=== PATIENT | female | born 1980 | race Native Hawaiian/Other Pacific Islander ===

== ENCOUNTER 2018-01-11 10:08 | Inpatient (IN) | payer OTHER ==
--- NOTE | 2018-01-11 11:06 | ED ---
General Adult HPI - General Chief complaint: Psychiatric Symptoms Stated complaint: Mental Health Time Seen by Provider: 01/11/18 10:20 Source: patient, RN notes reviewed Mode of arrival: ambulatory Limitations: no limitations - History of Present Illness Initial comments: 37-year-old female history of schizoaffective disorder presents for evaluation of auditory hallucinations. Patient is currently off her medication, she has been off for the past one month. She was restarted on her medications 2 months ago, took these for 1 month with some mild improvement in her symptoms. Patient states she hears the voices constantly, they are threatening, they tell her to hurt herself or that they will hurt her and that ultimately they will hurt her family. She herself denies any suicidal ideation. Patient's symptoms are very concerning to both herself and her family who is at bedside. She has had diagnosis of schizo disorder for some time, but she has not been hospitalized for these symptoms. - Related Data Home Medications Medication Instructions Recorded Confirmed Paliperidone [Invega] 6 mg PO DAILY 01/11/18 01/11/18 buPROPion HCL [Wellbutrin XL] 150 mg PO DAILY 01/11/18 01/11/18 Allergies Allergy/AdvReac Type Severity Reaction Status Date / Time No Known Allergies Allergy Verified 01/11/18 11:01 Review of Systems ROS Statement: Those systems with pertinent positive or pertinent negative responses have been documented in the HPI. ROS Other: All systems not noted in ROS Statement are negative. Past Medical History Past Medical History: Pneumonia History of Any Multi-Drug Resistant Organisms: None Reported Past Surgical History: No Surgical Hx Reported Past Psychological History: Schizoaffective Disorder Smoking Status: Current every day smoker Past Alcohol Use History: Occasional Past Drug Use History: Marijuana General Exam Limitations: no limitations General appearance: alert, in no apparent distress Head exam: Present: atraumatic, normocephalic Eye exam: Present: normal appearance, PERRL ENT exam: Present: normal exam Neck exam: Present: normal inspection. Absent: tenderness, meningismus Respiratory exam: Present: normal lung sounds bilaterally. Absent: respiratory distress, wheezes Cardiovascular Exam: Present: regular rate, normal rhythm GI/Abdominal exam: Present: soft. Absent: distended, tenderness Extremities exam: Present: normal inspection, normal capillary refill. Absent: pedal edema Neurological exam: Present: alert, oriented X3. Absent: motor sensory deficit Psychiatric exam: Present: flat affect, homicidal ideation (Suicidal and homicidal ideation with auditory hallucination), suicidal ideation Skin exam: Present: warm, dry, intact. Absent: cyanosis, diaphoretic Course Vital Signs 01/11/18 10:10 Temperature 98.1 F Pulse Rate 80 Respiratory 18 Rate Blood Pressure 136/76 O2 Sat by Pulse 98 Oximetry Medical Decision Making - Medical Decision Making Patient evaluated by EPS, she will be admitted for further psychiatric evaluation and treatment - Lab Data Lab Results 01/11/18 Range/Units 10:15 Urine Opiates Screen Not Detected (NotDetected) Ur Oxycodone Screen Not Detected (NotDetected) Urine Methadone Screen Not Detected (NotDetected) Ur Propoxyphene Screen Not Detected (NotDetected) Ur Barbiturates Screen Not Detected (NotDetected) U Tricyclic Antidepress Not Detected (NotDetected) Ur Phencyclidine Scrn Not Detected (NotDetected) Ur Amphetamines Screen Not Detected (NotDetected) U Methamphetamines Scrn Not Detected (NotDetected) U Benzodiazepines Scrn Detected H (NotDetected) Urine Cocaine Screen Not Detected (NotDetected) U Marijuana (THC) Screen Detected H (NotDetected) Disposition Clinical Impression: Psychosis Disposition: ADMITTED IP TO THIS [facility] Condition: Stable Referrals: Justin Brownlee DO [Primary Care Provider] - 1-2 days Decision to Admit Reason: Admit from EC Decision Date: 01/11/18 Decision Time: 13:42
[2018-01-11 11:34] LABS: Cocaine Screen,Urine Not Detected (NotDetected); Opiate Screen,Urine Not Detected (NotDetected); Phencyclidine Screen,Urine Not Detected (NotDetected); Urn Cannabinoid Scrn Detected (NotDetected)
[2018-01-11 11:35] LABS: Amphetamine Screen,Urine Not Detected (NotDetected); Barbiturate Screen,Urine Not Detected (NotDetected); Benzodiazepines Screen,Urine Detected (NotDetected); Methadone Screen, Urine Not Detected (NotDetected); Oxycodone Screen, Urine Not Detected (NotDetected); Tricyclic Antidepressant,Urine Not Detected (NotDetected)
[2018-01-11] MEDS: NICOTINE 21MG/24HR PATCH TRANSDERM SCH (14:19)
[2018-01-11] MEDS ORDERED: MAG HYDROX/AL HYDROX/SIMETH 30 ML CUP PO PRN (15:14)
[2018-01-11] MEDS ORDERED: MAGNESIUM HYDROXIDE 2,400 MG/10 ML CUP PO PRN (15:14)
[2018-01-11] MEDS ORDERED: ZIPRASIDONE 20 MG VIAL IM PRN (15:14)
--- NOTE | 2018-01-11 16:27 | P.HPMEDMHU ---
History of Present Illness H&P Date: 01/11/18 Chief Complaint: hearing voices Patient is a 37-year-old female with a past medical history of schizoaffective disorder depressive type, pneumonia, and tobacco abuse who presented to the ER due to hearing voices. She was subsequently admitted to the mental health unit. We are asked to see her in evaluation for possible medical etiologies. She states that she has a history of schizoaffective disorder depressive type and was being seen at [facility] here but due to insurance issues she stopped seeing them approximately a year ago. At that point in time she was on invega and wellbutrin. She was out of them for about a year but then saw a video psychiatrist who prescribed 4 week's worth of Invega and Wellbutrin , she ran out of those approximately 2 weeks ago. She reports that she lost her job about a month ago and since that point in time she has been hearing voices. She states that they're not voices but in fact some type of biotechnology that can control her and she can hear them. She states that they intermittently cause her pain is typically in her back or left shoulder but she is not having any now. She denies any chest pain, shortness of breath, nausea, vomiting, diarrhea, constipation, or dysuria. She is not having any weakness. She states that the voices could control all of that if they wanted. Review of Systems Pertinent positives and negatives as per HPI, remainder of 12 point review of systems is negative. Past Medical History Past Medical History: No Reported History, Pneumonia History of Any Multi-Drug Resistant Organisms: None Reported Past Surgical History: No Surgical Hx Reported Past Psychological History: Schizoaffective Disorder Additional Psychological History / Comment(s): Schizoaffective disorder she states depressive type Smoking Status: Current every day smoker Past Alcohol Use History: None Reported Past Drug Use History: Marijuana Additional History: Lives with her boyfriend, recently out of work, does not use any assistive devices - Past Family History Father Family Medical History: Diabetes Mellitus Mother Family Medical History: No Reported History Medications and Allergies Home Medications Medication Instructions Recorded Confirmed Type Paliperidone [Invega] 6 mg PO DAILY 01/11/18 01/11/18 History buPROPion HCL [Wellbutrin XL] 150 mg PO DAILY 01/11/18 01/11/18 History Allergies Allergy/AdvReac Type Severity Reaction Status Date / Time No Known Allergies Allergy Verified 01/11/18 11:01 Physical Exam Osteopathic Statement: *. No significant issues noted on an osteopathic structural exam other than those noted in the History and Physical/Consult. Vitals: Vital Signs Temp Pulse Resp BP Pulse Ox 01/11/18 13:43 97.8 F 67 16 121/58 97 01/11/18 10:10 98.1 F 80 18 136/76 98 Intake and Output 01/11/18 01/11/18 01/11/18 06:59 14:59 22:59 Other: Weight 99.79 kg Patient Weight 01/12/18 06:59 Weight 99.79 kg General: non toxic, no distress, appears at stated age, obese Derm: no unusual rashes/lesions no unusual ecchymoses, warm, dry Head: atraumatic, normocephalic, symmetric Eyes: EOMI, no lid lag, anicteric sclera, pupils equal round reactive to light ENT: Nose and ears atraumatic, no thrush, no pharyngeal erythema Neck: No thyromegaly, no cervical lymphadenopathy, trachea midline, supple Mouth: no lip lesion, mucus membranes moist Cardiovascular: S1S2 reg, no murmur, positive posterior tibial pulse bilateral, no edema, capillary refill less than 2 seconds Lungs: CTA bilateral, no rhonchi, no rales , no accessory muscle use Abdominal: soft, nontender to palpation, no guarding, no appreciable organomegaly, normal bowel sounds Ext: no gross muscle atrophy, muscle strength 5 out of 5 in all 4 extremities grossly, no contractures, Neuro: CN II-XI grossly intact, light touch intact all 4 extremities, finger to nose within normal limits, Psych: Alert, oriented, appropriate affect Cranial Nerve Examination - Cranial Nerves Cranial Nerve II- Optic: Intact Cranial Nerve III- Oculomotor: Intact Cranial Nerve IV- Trochlear: Intact Cranial Nerve V- Trigeminal: Intact Cranial Nerve - Abducens: Intact Cranial Nerve VII- Facial: Intact Cranial Nerve VIII- Auditory: Intact Cranial Nerve IX- Glossopharyngeal: Intact Cranial Nerve X- Vagus: Intact Cranial Nerve XI- Accessory: Intact Cranial Nerve XII- Hypoglossal: Intact Results Labs: Abnormal Lab Results - Last 24 Hours (Table) 01/11/18 Range/Units 10:15 U Benzodiazepines Scrn Detected H (NotDetected) U Marijuana (THC) Screen Detected H (NotDetected) Thrombosis Risk Factor Assmnt - DVT/VTE Prophylaxis DVT/VTE Prophylaxis: Low risk, early ambulation encouraged Assessment and Plan Assessment: Obesity -Check cholesterol level, hemoglobin A1c -Outpatient structured weight loss program of tobacco abuse -Cessation recommended -Nicotine replacement therapy Schizoaffective disorder with hallucinations -Your psych management History of multiple medications last year will check screening CBC, basic metabolic profile, TSH, cholesterol level, and hemoglobin A1c. If the family doctor as needed she follows with Dr. Brownlee in [place] Thank you for allowing us to participate in the care of this patient. We will follow peripherally. Do not hesitate to contact us with questions. Someone can be reached from the [facility] hospitalist group at all hours of the day at [phone].
[2018-01-12] MEDS: NICOTINE 21MG/24HR PATCH TRANSDERM SCH (09:44)
[2018-01-12 10:39] LABS: Basophils # (A) 0.1 k/uL (0-0.2); Basophils % (A) 1 %; Eosinophils # (A) 0.1 k/uL (0-0.7); Eosinophils % (A) 1 %; HCT 43.5 % (34.0-46.0); HGB 13.7 gm/dL (11.4-16.0); Lymphocytes # (A) 1.2 k/uL (1.0-4.8); Lymphocytes % (A) 9 %; MCH 29.7 pg (25.0-35.0); MCHC 31.6 g/dL (31.0-37.0); Mean Platelet Volume 8.2; Monocytes # (A) 0.5 k/uL (0-1.0); Monocytes % (A) 3 %; Neutrophils # (A) 12.1 k/uL (1.3-7.7); Neutrophils % (A) 86 %; Platelet Count 232 k/uL (150-450); RBC 4.63 m/uL (3.80-5.40); RDW 12.2 % (11.5-15.5)
[2018-01-12 11:31] LABS: ALT 22 U/L (9-52); AST 13 U/L (14-36); Albumin 4.3 g/dL (3.5-5.0); Alkaline Phosphatase 63 U/L (38-126); Anion Gap 14 mmol/L; Blood Urea Nitrogen 14 mg/dL (7-17); Calcium 9.5 mg/dL (8.4-10.2); Carbon Dioxide 23 mmol/L (22-30); Chloride 106 mmol/L (98-107); Cholesterol 189 mg/dL (<200); Glucose 126 mg/dL (74-99); HDL Cholesterol 42 mg/dL (40-60); LDL Cholesterol,Calculated 108 mg/dL (0-99); Sodium 143 mmol/L (137-145); Total Bilirubin 0.4 mg/dL (0.2-1.3); Total Protein 6.8 g/dL (6.3-8.2); Triglycerides 193 mg/dL (<150)
--- NOTE | 2018-01-12 16:05 | P.HP ---
Psychiatric H&P - . H&P Date: 01/12/18 History & Physical: Allergies Allergy/AdvReac Type Severity Reaction Status Date / Time No Known Allergies Allergy Verified 01/11/18 11:01 Vital Signs Temp 98.5 F 01/12/18 09:45 Pulse 97 01/12/18 09:45 Resp 20 01/12/18 09:45 BP 126/92 01/12/18 09:45 Pulse Ox 97 01/11/18 13:43 Intake & Output 01/11/18 01/12/18 01/12/18 18:59 06:59 18:59 Weight 99.79 kg Laboratory Last Values WBC 14.0 k/uL (3.8-10.6) H 01/12/18 10:10 RBC 4.63 m/uL (3.80-5.40) 01/12/18 10:10 Hgb 13.7 gm/dL (11.4-16.0) 01/12/18 10:10 Hct 43.5 % (34.0-46.0) 01/12/18 10:10 MCV 94.0 fL (80.0-100.0) 01/12/18 10:10 MCH 29.7 pg (25.0-35.0) 01/12/18 10:10 MCHC 31.6 g/dL (31.0-37.0) 01/12/18 10:10 RDW 12.2 % (11.5-15.5) 01/12/18 10:10 Plt Count 232 k/uL (150-450) 01/12/18 10:10 Neutrophils % 86 % 01/12/18 10:10 Lymphocytes % 9 % 01/12/18 10:10 Monocytes % 3 % 01/12/18 10:10 Eosinophils % 1 % 01/12/18 10:10 Basophils % 1 % 01/12/18 10:10 Neutrophils # 12.1 k/uL (1.3-7.7) H 01/12/18 10:10 Lymphocytes # 1.2 k/uL (1.0-4.8) 01/12/18 10:10 Monocytes # 0.5 k/uL (0-1.0) 01/12/18 10:10 Eosinophils # 0.1 k/uL (0-0.7) 01/12/18 10:10 Basophils # 0.1 k/uL (0-0.2) 01/12/18 10:10 Sodium 143 mmol/L (137-145) 01/12/18 10:10 Potassium 4.0 mmol/L (3.5-5.1) 01/12/18 10:10 Chloride 106 mmol/L (98-107) 01/12/18 10:10 Carbon Dioxide 23 mmol/L (22-30) 01/12/18 10:10 Anion Gap 14 mmol/L 01/12/18 10:10 BUN 14 mg/dL (7-17) 01/12/18 10:10 Creatinine 0.94 mg/dL (0.52-1.04) 01/12/18 10:10 Est GFR (MDRD) Af Amer >60 (>60 ml/min/1.73 sqM) 01/12/18 10:10 Est GFR (MDRD) Non-Af >60 (>60 ml/min/1.73 sqM) 01/12/18 10:10 Glucose 126 mg/dL (74-99) H 01/12/18 10:10 Calcium 9.5 mg/dL (8.4-10.2) 01/12/18 10:10 Total Bilirubin 0.4 mg/dL (0.2-1.3) 01/12/18 10:10 AST 13 U/L (14-36) L 01/12/18 10:10 ALT 22 U/L (9-52) 01/12/18 10:10 Alkaline Phosphatase 63 U/L (38-126) 01/12/18 10:10 Total Protein 6.8 g/dL (6.3-8.2) 01/12/18 10:10 Albumin 4.3 g/dL (3.5-5.0) 01/12/18 10:10 Triglycerides 193 mg/dL (<150) H 01/12/18 10:10 Cholesterol 189 mg/dL (<200) 01/12/18 10:10 LDL Cholesterol, Calc 108 mg/dL (0-99) H 01/12/18 10:10 HDL Cholesterol 42 mg/dL (40-60) 01/12/18 10:10 TSH 0.515 mIU/L (0.465-4.680) 01/12/18 10:10 Urine Opiates Screen Not Detected (NotDetected) 01/11/18 10:15 Ur Oxycodone Screen Not Detected (NotDetected) 01/11/18 10:15 Urine Methadone Screen Not Detected (NotDetected) 01/11/18 10:15 Ur Propoxyphene Screen Not Detected (NotDetected) 01/11/18 10:15 Ur Barbiturates Screen Not Detected (NotDetected) 01/11/18 10:15 U Tricyclic Antidepress Not Detected (NotDetected) 01/11/18 10:15 Ur Phencyclidine Scrn Not Detected (NotDetected) 01/11/18 10:15 Ur Amphetamines Screen Not Detected (NotDetected) 01/11/18 10:15 U Methamphetamines Scrn Not Detected (NotDetected) 01/11/18 10:15 U Benzodiazepines Scrn Detected (NotDetected) H 01/11/18 10:15 Urine Cocaine Screen Not Detected (NotDetected) 01/11/18 10:15 U Marijuana (THC) Screen Detected (NotDetected) H 01/11/18 10:15 01/12/18 15:47 Identification: Patient is a 37-year-old female who was brought to the emergency room because of weird behavior and had been off her medications. History of Present Illness: Patient is being seen for Dr. Mcbride. She patient states that her and mother brought her to the emergency room. She states that she was being seen by [facility] 2 years ago in [place] and saw them for 1 year but has not been on her medication since she stopped seeing them. She states she went to her primary care physician who referred her to [facility] where she was seen by a psychiatrist via of video. He prescribed in vague and Wellbutrin for her and this occurred in November 2017. Is unclear to me if the patient is taking the medication or not and she states that she did but it didn't work and so she stopped taking it. Patient states that in 2014 it was the first time she ever been seen by [facility] or treated for any psychiatric symptoms. She reports she was hearing voices at that time that she describes as an electronic quality and felt that she was being watched. She states she had suicidal thoughts at that time but the voices just stopped happening and then they would happen again. She states that she is hearing auditory hallucinations currently that her voices and she thinks that the NSA is using electronic weapons which she describes as psychotronic weapons. She states she is writing things down that they tell her and that the voices have been constant since November. She states the voices are conversations that tell her what to write down. She states that they also put her to sleep when they want. She states that she's had suicidal ideations and has made some plans but will not discuss them with me at this time and denies current suicidal ideation. Patient when discussing the NSA in the electronic weapons again to cain and at times her responses did not make any sense. Patient states that she is being watched but she doesn't think anyone is trying to hurt her. Patient denies any racing thoughts, increased energy, impulsive behavior. Patient states that she feels she is being watched now. Past Psychiatric History: Patient denies any past inpatient psychiatric admissions and states that she first received treatment in [address] [facility] in [place]. She states she was seen there for a year but is not been taking medications and was recently seen in [facility] via video by a psychiatrist and prescribed invega and Wellbutrin. She states she was on Abilify in the past but it made her gain weight and she is unaware of what other medications she has been on. She states she has been diagnosed with schizoaffective disorder, depressive type. Past Medical/Surgical History: Patient denies any surgical or medical history Family History: Patient states that a paternal cousin has been diagnosed with schizophrenia, reports no drug or alcohol history in the family Social History: Patient was born and raised in [place] to parents are both alive and has one brother and sister. Patient completed high school and then states she was a [id number] mom. She has been with her partner for 20 years and they have 2 children ages 19 and 16. He has an adult son from a prior relationship. She lives with her partner and the 16-year-old as well as a friend of the partners. 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 She denies any physical or sexual abuse. Substance Use History: Patient states she began using alcohol in the past and then quit for 10 years. She states that she is currently using alcohol and has for the last several months at a fifth a week. Patient states used marijuana at the age of 11 and is using currently. She states she also purchased Valium from the street which helped with the voices and she tried Adderall and Vicodin last week. Patient states that she has increased her use of tobacco and was smoking close to 3 packs of cigarettes a day. Legal History: Patient states that she was charged with malicious distraction of property when she was 16 Mental status: Appearance/Attitude: Patient is dressed in a hospital gown, makes intermittent eye contact and is cooperative Behavior: Patient did not display any psychomotor agitation or retardation was able to sit quietly during the interview Speech/Language: Patient's speech was spontaneous, normal volume and rhythm and she was coherent at times rambling about the voices, electronic weapons Thought Process: Patient was goal-directed in her responses to some questions but would become tangential. Patient did not exhibit flight of ideas or loose associations Thought Content: Patient states that she is hearing voices or having conversation and it is constant. She denies any visual hallucinations. She states that the NSA is involved as they are using electronic weapons as well as psychotronic weapons. She states they're telling her to write things down. She states the voices have been constant since November. She states that they put her to sleep when they want. Patient states that she's been eating well at home. Patient states that she feels she is being watched. Suicidal/Homicidal Ideation: Patient states that she currently has no suicidal ideation but she would not discuss her suicidal ideation or plans that she had before coming to the hospital and denies current homicidal ideation Sensorium/Cognition: Patient was alert and oriented to person, place, and time and her recent and remote memory were grossly intact Mood/Affect: Patient states she is depressed, and her affect was slightly blunted. Insight/Judgment: Patient's insight and judgment are impaired Intellectual Functioning: Patient's intellectual functioning appears average Strength/Weakness: Patient's has a stable housing, stable relationship/ noncompliance of medication Assessment: Patient was brought to the emergency room by her partner and mother due to not taking her medications as well as weird behavior. Patient has been using alcohol as well as her UDS was positive for benzos and marijuana which the patient states she has been using as well recently. Patient is reporting auditory hallucinations as well as feeling that she is being watched and reports that the NSA is involved using electronic and psychotronic weapons. She states she is being told to write things down and that she is being put to sleep when they want her to. Patient states that she responded well to invega and wellbutrin. Admission Diagnosis: schizoaffective disorder, depressive type; r/o bipolar disorder, alcohol use disorder, mild Plan: Patient was admitted and placed on routine precautions, group and activity therapy were ordered as well as routine laboratory studies and a medical consultation. Patient reports that she did well on an vague and so she was started on a day to 3 mg at bedtime, at this time I will not restart the Wellbutrin. I reviewed the use and side effects of the medication with the patient and discussed increasing the invega as needed. Patient requires hospitalization to stabilize her mood and target her psychotic symptoms.
[2018-01-12 19:05] LABS: Hemoglobin A1C 5.2 % (4.0-6.0)
[2018-01-12] MEDS ORDERED: PALIPERIDONE 3 MG TAB.ER.24 PO SCH (21:00)
[2018-01-13 06:50] VITALS: RESP 16
[2018-01-13] MEDS: NICOTINE 21MG/24HR PATCH TRANSDERM SCH (09:34)
--- NOTE | 2018-01-13 10:16 | P.PN ---
Progress Note - Text Interval history: The patient is found in group she follows me to an interview room. The psychiatric evaluation note was reviewed. She carries a diagnosis of schizoaffective disorder. She presents with acute symptoms of psychosis to the mental health unit and continues to have them today. She reports feeling persecuted by the [facility] and other government agencies. She states that they are using electronic weapons on her to psychologically torture her. She indicates she is having auditory hallucinations that will sometimes be commanding. She states that she feels she is "giving up" because she is talking about the voices and this will likely lead to her being injured. She states she's been on an invega in the past but did not feel it was effective. She indicates she was on Abilify and gained several pounds. It appears she's been on invega at least twice in the past. We will need collateral information. Mental status exam: The patient is an alert female appearing her stated age she has long hair she is dressed in hospital gown she is wearing red lipstick she has a disheveled appearance. She has spontaneous speech he is verbose she is directable in the session. She describes a distraught mood as she feels she is in danger. She describes a variety of paranoid and persecutory delusions as noted above. Insight and judgment are impaired however she is willing to comply with medication. She demonstrates no verbal or physical aggressiveness. She demonstrates no abnormal involuntary movements. Plan: Schizoaffective disorder, the patient will continue on invega we will increase the dose to 6 mg at bedtime. We will try to obtain records or getting input from collateral sources regarding the effectiveness of invega in the past. She may benefit from an injectable form of the medication. We discussed that topic and she entered no opinion today. Vital signs reviewed. We will monitor her for safety.
[2018-01-13] MEDS: LORazepam 1 MG TAB PO PRN ×2 (12:27→18:30)
[2018-01-13] MEDS: PALIPERIDONE 6 MG TAB.ER.24 PO SCH (21:23)
[2018-01-14] MEDS: NICOTINE 21MG/24HR PATCH TRANSDERM SCH (09:15)
[2018-01-14] MEDS: LORazepam 1 MG TAB PO PRN ×2 (09:15→17:19)
--- NOTE | 2018-01-14 09:57 | P.PN ---
Progress Note - Text Interval history: The patient is found in group she follows me to an interview room. She reports that she slept well last night however staff recorded approximate 5 hours. The patient states her appetite is stable and that she ate "too much". She continues to describe a variety of fears. She states that her auditory hallucinations are telling her that everyone is after her. She states that she wrote a letter to the [facility] and now they are angry with her. She states that these thoughts and hallucinations are constant. Mental status exam: The patient is alert she is dressed in hospital attire she has a disheveled appearance she seated calmly. She is very cooperative and easy to direct. She describes paranoid and persecutory delusions as noted above and describes auditory hallucinations that are sometimes commanding but not directing self-harm or harm to others. Insight and judgment are impaired. She demonstrates no verbal or physical aggressiveness she demonstrates no abnormal involuntary movements. Thought process can be linear at times she will become more tangential in describing her psychotic thoughts. Plan: We will continue the Invega 6 mg at bedtime. We will consider titrating dose further. We are awaiting records regarding past psychiatric treatment to see if the invega in fact was of benefit as an outpatient. We will monitor her for safety and encourage participation in the milieu.
[2018-01-14] MEDS: ACETAMINOPHEN TAB 325 MG TAB PO PRN (11:09)
[2018-01-14] MEDS: PALIPERIDONE 6 MG TAB.ER.24 PO SCH (21:18)
[2018-01-15] MEDS: LORazepam 1 MG TAB PO PRN ×2 (08:37→20:43)
[2018-01-15] MEDS: NICOTINE 21MG/24HR PATCH TRANSDERM SCH (08:37)
--- NOTE | 2018-01-15 15:39 | P.PN ---
Progress Note - Text Progress Note Date: 01/15/18 Interval history: The patient is seen in office ,has appropriate make up She reports that she slept well last night ,rates her anxiety 9/10 ,depression 9/10 ,10 being the worst,s She states that her auditory hallucinations are less intense than before She states that she is afraid that someone will hurt , patient stated that paranoia and AH are constant since age 17 and not related to her use for Vicodin or Adderall Mental status exam: The patient is well dressed and groomed She is very cooperative and easy to direct. She describes persecutory delusions as noted above and describes auditory hallucinations less intense with Invega than before ,denies any command AH,denies any SI or HI Insight and judgment are limited She demonstrates no verbal or physical aggressiveness she demonstrates no abnormal involuntary movements. Plan: We will continue current psychotropic medications . We will monitor her for safety and encourage participation in the milieu.Vitals are stable
[2018-01-15] MEDS: PALIPERIDONE 6 MG TAB.ER.24 PO SCH (20:43)
[2018-01-16] MEDS: LORazepam 1 MG TAB PO PRN ×2 (09:36→20:27)
--- NOTE | 2018-01-16 09:54 | P.PN ---
Progress Note - Text Progress Note Date: 01/16/18 Interval history: The patient was seen in hallway crying and talking to herself ,she did follow me to the office,she reports that A.hallucinations are loud and "THEY WANT TO TORTURING ME",endorses persecutory delusion ,irrational fear , crying episodes and feeling overwhelmed by intensity of A.hallucination , patient denies sleep or appetite issue ,denies any SI or HI.Patient stated that she was functioning better on Wellbutrin 300 mg and Invega 12 mg Mental status exam: The patient is dressed in hospital gown ,crying through session She is very cooperative and easy to direct. She describes persecutory delusions and AH ,denies any command AH,denies any SI or HI Insight and judgment are limited She demonstrates no verbal or physical aggressiveness she demonstrates no abnormal involuntary movements. Plan: We will increase Invega to 3mg AM and 6mg HS,monitor her thought process , does require hospitalization. We will monitor her for safety and encourage participation in the milieu.Vitals are stable
[2018-01-16] MEDS: PALIPERIDONE 3 MG TAB.ER.24 PO SCH (10:05)
[2018-01-16] MEDS: NICOTINE 21MG/24HR PATCH TRANSDERM SCH (10:06)
[2018-01-16] MEDS: PALIPERIDONE 6 MG TAB.ER.24 PO SCH (20:27)
[2018-01-17] MEDS: PALIPERIDONE 3 MG TAB.ER.24 PO SCH (09:04)
[2018-01-17] MEDS: NICOTINE 21MG/24HR PATCH TRANSDERM SCH (09:04)
[2018-01-17] MEDS: LORazepam 1 MG TAB PO PRN ×3 (09:04→23:10)
--- NOTE | 2018-01-17 11:35 | P.PN ---
Progress Note - Text Interval history: The patient is found in group she follows me to an interview room. She states her mood is mildly improved. She expresses some concern that she's not on her antidepressant and she reports she had some suicidal thoughts this morning. She continues to experience auditory hallucinations that can be derogatory at times and those will also precipitate suicidal thoughts. Staff report that she is participating in groups she is demonstrating no agitated behavior. I did receive a packet from [facility] [place]. It does indicate that the patient has done best on an invega and Wellbutrin XL. Social work was able to contact the patient's sister and she indicated the patient has done best with Wellbutrin and invega. Mental status exam: The patient is alert she seated calmly in the chair she is dressed in hospital attire. Hygiene is adequate she has a disheveled appearance. She indicates ongoing auditory hallucinations that can be derogatory. She indicates some recent suicidal thinking. Overall today she feels her mood is mildly better. She demonstrates no verbal or physical aggressiveness she demonstrates no abnormal involuntary movements. She does continue to have the same paranoid and persecutory thoughts as previously described. Insight and judgment limited. Plan: The patient will continue on the invega as written. I will initiate Wellbutrin XL 150 mg in the morning. We will consider titrating to 300 mg during the course of the hospitalization.
[2018-01-17] MEDS: PALIPERIDONE 6 MG TAB.ER.24 PO SCH (22:03)
[2018-01-18] MEDS: PALIPERIDONE 3 MG TAB.ER.24 PO SCH (09:05)
[2018-01-18] MEDS: buPROPion XL 150 MG TAB.ER.24H PO SCH (09:05)
[2018-01-18] MEDS: NICOTINE 21MG/24HR PATCH TRANSDERM SCH (09:05)
[2018-01-18] MEDS: LORazepam 1 MG TAB PO PRN ×2 (09:06→19:14)
--- NOTE | 2018-01-18 09:33 | P.PN ---
Progress Note - Text Interval history: The patient is found in her room she follows me to an interview room. She states her mood is better however she does continue to have some intermittent suicidal thoughts. Auditory hallucinations continue which include several different voices. She states they will provide some humorous content but also still are commanding. She states they will threatened her if she does not go along with their wishes. She reports that the voices tend to be a lot less when she is around other people intended be more acute when she is alone. She continues to state that she wants to be discharged as she feels it's ready for her to leave the hospital. We discussed the need for us to stabilize her symptoms further optimize her function once she is discharged. Mental status exam: The patient is alert she is dressed in her own clothing she has a disheveled appearance hygiene is adequate. She maintains a bland affect. She reports her mood is okay but also states she's having some intermittent suicidal ideation. She is reporting no homicidal ideation. She continues to have the same paranoid and persecutory thoughts. She states she wants to purchase a device that will block electronic and ultrasonic rays that might affect her. Insight and judgment limited. She demonstrates no abnormal involuntary movements she demonstrates no verbal or physical aggressiveness. Plan: The patient will continue on the invega 9 mg total. We have restarted the Wellbutrin XL which she has found helpful for depression in the past. Her symptoms of psychosis still appear to be exacerbated compared to what we assume her baseline function may be. She requires continued psychiatric hospitalization. We will monitor her for safety. She is encouraged to continue participating in group. Vital signs reviewed. I will reduce the frequency of the as needed Ativan.
[2018-01-18] MEDS ORDERED: MELATONIN 5 MG TABLET PO SCH (21:00)
[2018-01-18] MEDS: PALIPERIDONE 6 MG TAB.ER.24 PO SCH (21:14)
[2018-01-19] MEDS: NICOTINE 21MG/24HR PATCH TRANSDERM SCH (08:44)
[2018-01-19] MEDS: buPROPion XL 150 MG TAB.ER.24H PO SCH (08:45)
[2018-01-19] MEDS: PALIPERIDONE 3 MG TAB.ER.24 PO SCH (08:45)
--- NOTE | 2018-01-19 10:30 | P.PN ---
Progress Note - Text Interval history: The patient is found in the self lounge. She reports being involved in an argument with her last evening. She felt that he believed what she believed in terms of concerns of being monitored. She states that last night he confronted her telling her that that was her schizophrenia. She still resists the idea that she has this diagnosis. She expresses concern that she will have to take medication forever. We spent some time discussing what the medication does in terms of dopamine modulation. She states that her voices never go away and we discussed that we just want to see her improve her overall function and not be at an acute risk in terms of safety. Mental status exam: The patient is alert she is a disheveled appearance she is dressed in hospital attire. Upon entering the room she appears to be speaking to herself likely responding to auditory hallucinations. She endorses continued auditory hallucinations with continued thoughts that she is being listened to and could be in danger by electronic devices. She is reporting no suicidal ideation this morning no homicidal ideation intent or plan. She demonstrates no verbal or physical aggressiveness or any abnormal involuntary movements. Insight and judgment limited. Plan: The patient will continue on her current psychotropic medication. We will consider titrating Invega further. We will monitor her for safety and encourage her participation in the milieu. Vital signs reviewed. She is not appropriate for discharge at this point.
[2018-01-19] MEDS: PALIPERIDONE 6 MG TAB.ER.24 PO SCH (20:10)
[2018-01-19] MEDS: LORazepam 1 MG TAB PO PRN (21:02)
[2018-01-20] MEDS: PALIPERIDONE 3 MG TAB.ER.24 PO SCH (08:38)
[2018-01-20] MEDS: buPROPion XL 150 MG TAB.ER.24H PO SCH (08:38)
[2018-01-20] MEDS: NICOTINE 21MG/24HR PATCH TRANSDERM SCH (08:38)
[2018-01-20] MEDS: LORazepam 1 MG TAB PO PRN ×2 (08:38→20:46)
--- NOTE | 2018-01-20 09:10 | P.PN ---
Progress Note - Text Interval history: The patient is found in the self lounge. She states that she is feeling "stir crazy" and would like to be discharged. She states it's been over a month since she has worked and she wants to return to work by finding a new job. She has been compliant with medication she has been attending groups. She states that she sleeping throughout the night staff reported she slept 6 hours. She continues to experience auditory hallucinations. She states they' re noncommanding today. She states she is wasting time in here when she needs to return home and think of ways to stop others from reading her mind. Mental status exam: The patient is alert she is cooperative and easily directed in the session. She seated calmly in the chair. Upon approach to the self lounge she was observed talking to herself quietly. She discontinues that activity when I enter the room area she endorses ongoing auditory hallucinations. She endorses ongoing paranoid and persecutory thoughts. She is future oriented in stating she wants to return to work. She demonstrates no verbal or physical aggressiveness or any abnormal involuntary movements. Insight and judgment limited. Affect is constricted. Plan: The patient will continue on her current psychotropic medication. We will investigate whether or not she will be able to afford Invega Sustenna through [place] [facility]. We will look for input from social work from her . We will monitor her for safety and encourage her participation in the milieu. Vital signs reviewed. Again we are trying to reduce her symptoms of psychosis so that she is closer to baseline function. Again it does appear that she has psychosis at baseline.
[2018-01-20] MEDS: ACETAMINOPHEN TAB 325 MG TAB PO PRN (17:00)
[2018-01-20] MEDS: PALIPERIDONE 6 MG TAB.ER.24 PO SCH (20:47)
[2018-01-21] MEDS: PALIPERIDONE 3 MG TAB.ER.24 PO SCH (08:49)
[2018-01-21] MEDS: buPROPion XL 150 MG TAB.ER.24H PO SCH (08:49)
[2018-01-21] MEDS: NICOTINE 21MG/24HR PATCH TRANSDERM SCH (08:50)
[2018-01-21] MEDS: LORazepam 1 MG TAB PO PRN ×2 (08:50→20:21)
--- NOTE | 2018-01-21 10:22 | P.PN ---
Progress Note - Text Interval history: The patient is found in group she follows me to an interview room. She states that she is doing well and is looking forward to discharge. Social work notes were reviewed. We are still trying to verify if her outpatient community mental health provider will be able to cover the Invega Sabinoenna. If so he would like to initiate that soon and the patient is agreeable. She also indicates that her would be happy that she is on an injectable medication as well. She does indicate that she will return home to reside with her . Mental status exam: The patient is alert she is dressed in hospital attire she is wearing makeup hygiene grooming are improved. Eye contact is appropriate speech is fluent spontaneous nonpressured. She does demonstrate a more normal range of affect today. She was not observed responding to internal stimuli this morning. She does continue to endorse auditory hallucinations that are noncommanding. She continues to endorse paranoid and persecutory thoughts and states "I think I will always be paranoid". Insight and judgment improving. She demonstrates no verbal or physical aggressiveness she demonstrates no abnormal involuntary movements. Plan: The patient will continue on her current medication. Once we learn that she has access to invega sabinoenna as an outpatient we will initiate that medication here on the mental health unit. It appears that she is beginning to stabilize. We will consider discharging her Wednesday if she demonstrates further improvement and appears stable. We will continue to monitor her for safety and encourage her participation in the milieu. Social work will continue working on discharge planning.
[2018-01-21] MEDS: PALIPERIDONE 6 MG TAB.ER.24 PO SCH (20:21)
[2018-01-22] MEDS: buPROPion XL 150 MG TAB.ER.24H PO SCH (08:26)
[2018-01-22] MEDS: NICOTINE 21MG/24HR PATCH TRANSDERM SCH (08:26)
[2018-01-22] MEDS: LORazepam 1 MG TAB PO PRN ×2 (08:26→20:40)
[2018-01-22] MEDS: PALIPERIDONE 3 MG TAB.ER.24 PO SCH (08:26)
--- NOTE | 2018-01-22 14:23 | P.PN ---
Progress Note - Text Progress Note Date: 01/22/18 Interval History: Patient is a 37-year-old female who [place] [facility] [place]. Patient reports that she continues to have auditory hallucinations which she is trying to ignore but remained somewhat constant. She states that she remains paranoid still feeling that she does not have schizophrenia but is being tested with technology. Patient states she still is depressed and hopeless that she won't be able to figure out what is wrong with her. She slept for 8 hours last evening. She reports no suicidal thoughts. Patient reports no side effects from the medication. Mental Status: Appearance/Attitude: Patient is appropriately dressed, makes good eye contact and is cooperative. Behavior: Patient does not display any psychomotor agitation or retardation. Speech/Language: He speech is spontaneous and of normal volume and rhythm and she is coherent Thought Process: Patient is goal-directed, no evidence of loose associations or flight of ideas Thought Content: Patient reports that she continues to hear voices which are constant but she is trying to ignore them she denies visual hallucinations. Patient states that she still thinks technology is being tested on her and that she doesn't have schizophrenia. She reports feeling hopeless that she won't be able to figure out what is wrong with her. Patient slept for 8 hours last evening and is eating well Suicidal/Homicidal Ideation: Patient denies any current suicidal or homicidal ideation Sensorium/Cognition: Patient is alert and oriented to person, place, and time and her recent and remote memory are grossly intact. Mood/Affect: Patient's mood is more stable, she reports still feeling slightly depressed and her affect is slightly blunted Insight/Judgment: Patient's insight and judgment are fair. Assessment: Patient states that she continues to hear the voices but is trying to ignore them, continues to report feeling that she does not have schizophrenia but that technology is being tested on her. She reports no racing thoughts and is sleeping for 8 hours at night. She remains slightly depressed and hopeless secondary to not being able to figure out what is really wrong with her. Patient has been compliant with her medication and does feel that it has been of some benefit. Patient has been attending groups and activities. Plan: Patient continues on Invega 3 mg in the morning and 6 mg at bedtime and Wellbutrin 150 mg sustained-release in the morning to target her mood and psychotic symptoms. Patient continues to require hospitalization to further stabilize her in the long acting injectable Invega is being considered.
[2018-01-22] MEDS: ACETAMINOPHEN TAB 325 MG TAB PO PRN (15:00)
[2018-01-22] MEDS: PALIPERIDONE 6 MG TAB.ER.24 PO SCH (20:39)
[2018-01-23] MEDS: PALIPERIDONE 3 MG TAB.ER.24 PO SCH (08:34)
[2018-01-23] MEDS: NICOTINE 21MG/24HR PATCH TRANSDERM SCH (08:34)
[2018-01-23] MEDS: buPROPion XL 150 MG TAB.ER.24H PO SCH (08:35)
[2018-01-23] MEDS: LORazepam 1 MG TAB PO PRN ×2 (08:36→20:40)
--- NOTE | 2018-01-23 13:30 | P.PN ---
Progress Note - Text Progress Note Date: 01/23/18 Interval History: Patient is a 37-year-old female who is being seen for weekend coverage. Patient states that she slept well last night and is excited to be going home. She continues to verbalize that she doesn't feel that she needs the medication but states that she will continue to take it when she is discharged. She still feels that this is been caused by some kind of technology. She reports that at times she still has paranoid thoughts that people are watching her. She denied any suicidal ideation. She denied any side effects from the medicine other than feeling slightly sedated during the day. Mental Status: Appearance/Attitude: Patient is appropriately dressed, makes good eye contact and is cooperative Behavior: Patient does not display any psychomotor agitation or retardation. Speech/Language: Speech is spontaneous, normal volume and rhythm and she is coherent. Thought Process: Patient is goal-directed there is no evidence of loose associations or flight of ideas Thought Content: Patient denies auditory or visual hallucinations states that at times she still thinks people are watching her continues to have thoughts that technology is caused her difficulties and it is not due to schizophrenia she states that she does not feel that she needs the medications but will continue to take them post discharge. She reports that she is sleeping well and her appetite is good Suicidal/Homicidal Ideation: Patient denied any current suicidal or homicidal ideation. Sensorium/Cognition: Patient is alert and oriented to person, place, and time and her recent and remote memory are grossly intact. Mood/Affect: Patient's mood is pleasant and her affect is slightly blunted Insight/Judgment: Patient's insight and judgment are fair Assessment: Patient reports that she is not having side effects from the medication is sleeping and eating well and anxious and excited to go home. She does not feel that she needs to take the medication but states that she will continue to do so when she is discharged. She continues to think that her difficulties have been caused by technology. She states that occasionally she still has paranoid thoughts that people are watching her. Plan: Patient continues on Invega 3 mg in the morning and 6 mg at bedtime as well as Wellbutrin 150 mg in the morning and is planning to have long-acting Invega injection tomorrow. Patient states that the plan is for her to be discharged tomorrow.
[2018-01-23] MEDS: PALIPERIDONE 6 MG TAB.ER.24 PO SCH (20:39)
[2018-01-24 07:07] VITALS: BP 134/71; PULSE 96; TEMP 97.7
[2018-01-24] MEDS: PALIPERIDONE 3 MG TAB.ER.24 PO SCH (08:35)
[2018-01-24] MEDS: NICOTINE 21MG/24HR PATCH TRANSDERM SCH (08:35)
[2018-01-24] MEDS: buPROPion XL 150 MG TAB.ER.24H PO SCH (08:35)
[2018-01-24] MEDS ORDERED: PALIPERIDONE IM 234 MG/1.5 ML SYG IM ONE (10:00)
--- NOTE | 2018-01-24 10:01 | P.DS ---
Providers Date of admission: 01/11/18 13:47 Expected date of discharge: 01/24/18 Attending physician: Tunde Mcbride Consults: 01/11/18 15:14 Consult Physician Routine Consulting Provider: Stephanie Vazquez Consult Reason/Comments: H&P Do you want consulting provider notified?: Yes Primary care physician: Justin Brownlee - Discharge Diagnosis(es) (1) Schizoaffective disorder Current Visit: Yes Status: Acute (2) Alcohol use disorder Current Visit: Yes Status: Acute Priority: Medium Hospital Course: Brief summary of admission note: This patient is a 37-year-old female who was admitted to the mental health unit through the emergency room due to an exacerbation of her psychosis. She was brought to the hospital by family members due to her psychotic symptoms. It appeared that she had been off of her antipsychotic medication. She reported ongoing auditory hallucinations and paranoid thinking. She described thinking that the [employer] is using electronic weapons against her. For full details please refer to the psychiatric evaluation note dictated 01/12/2018. Summary of hospital course: The patient was admitted to the mental health unit. Her presenting symptoms and medication options were reviewed. She was restarted on an invega. We titrated the dose of that medication while here. We did get records from [facility] and indicated that she had done best with invega and Wellbutrin XL in the past. Social work did reach a family member and she had indicated the patient did well with these medications. It appeared evident that the patient has baseline psychosis but the symptoms were exacerbated at presentation. The patient was able to tolerate the Invega we discussed using the injectable form of the medication and she was agreeable as she finds it bothers him to take pills. She demonstrates future oriented thinking in that she wants to regain employment as she feels more productive when she works. She plans on returning home with her upon discharge. She is agreeable to follow-up with [facility]. She was seen by the court operations clerk for routine history and physical exam. Social work has met with the patient numerous times during the hospitalization. Mental status exam: The patient is an overweight female appearing her stated age. She is dressed in her own clothing. Hygiene and grooming are adequate. Eye contact is appropriate. Speech is fluent spontaneous nonpressured. She reports having no suicidal or homicidal ideation intent or plan. She has ongoing auditory hallucinations but she states she is not experiencing any command auditory hallucinations. She is endorsing no visual hallucinations. She continues to have some paranoid thoughts that she is being watched or monitored but she feels that these are at their baseline and she feels she would be able to continue participating in her ADLs and even resume working. Insight and judgment have improved. She is demonstrating no verbal or physical aggressiveness she is demonstrating no abnormal involuntary movements. She remains oriented to person place and date. Impressions 1. Schizoaffective disorder, alcohol use disorder Plan: The patient will be discharged mental health unit today to return home residing with her . She will continue on invega totaling 9 mg daily for 1 week then she may discontinue the medication. She will receive the Invega Sustenna injection 234 mg today. She will be due for her next Invega Sustenna injection of 156 mg in one week. She is instructed not to use any alcohol or illicit drugs as these will elevate her safety risk and likely exacerbate her psychotic symptoms. She does not wish to participate in any inpatient chemical dependency treatment for her alcohol use. She plans on addressing this further with outpatient mental health treatment. Social work will arrange outpatient mental health follow-up with [facility]. Patient Condition at Discharge: Stable Plan - Discharge Summary Discharge Rx Participant: No New Discharge Prescriptions: New buPROPion XL [Wellbutrin XL] 150 mg PO DAILY #30 tab.er.24h Nicotine 21Mg/24Hr Patch [Habitrol] 1 patch TRANSDERM DAILY #12 patch Paliperidone [Invega] 3 mg PO DAILY #7 tab.er.24 Paliperidone [Invega] 6 mg PO HS #7 tab.er.24 Paliperidone IM [Invega Sustenna] 156 mg IM ONCE #1 syr Discontinued buPROPion HCL [Wellbutrin XL] 150 mg PO DAILY Paliperidone [Invega] 6 mg PO DAILY Discharge Medication List Nicotine 21Mg/24Hr Patch [Habitrol] 1 patch TRANSDERM DAILY #12 patch 01/24/18 [ Rx] Paliperidone IM [Invega Sustenna] 156 mg IM ONCE #1 syr 01/24/18 [Rx] Paliperidone [Invega] 3 mg PO DAILY #7 tab.er.24 01/24/18 [Rx] Paliperidone [Invega] 6 mg PO HS #7 tab.er.24 01/24/18 [Rx] buPROPion XL [Wellbutrin XL] 150 mg PO DAILY #30 tab.er.24h 01/24/18 [Rx] Follow up Appointment(s)/Referral(s): Justin Brownlee DO [Primary Care Provider] - 1-2 days
== END 2018-01-24 12:29 | disposition home or self-care (01) | DRG 885 ==
LOC: EC 10:08 → 3MHU 13:47
PROVIDERS: ADMIT Psychiatry & Neurology Psychiatry; ATTEND Psychiatry & Neurology Psychiatry
DX: F25.1 Schizoaffective disorder, depressive type (principal); R45.851 Suicidal ideations; Z91.14 Patient's other noncompliance with medication regimen; F10.10 Alcohol abuse, uncomplicated; E66.9 Obesity, unspecified; F17.210 Nicotine dependence, cigarettes, uncomplicated; Z68.36 Body mass index [BMI] 36.0-36.9, adult; Z71.6 Tobacco abuse counseling
CPT/HCPCS: 80053; 80061; 80306; 82075; 83036; 84443; 85025; 99285

== ENCOUNTER 2023-03-17 17:04 | Inpatient (IN) | payer MEDICAID, OTHER ==
[2023-03-17 17:28] LABS: Appearance,Urine Cloudy (Clear); Bilirubin,Urine Negative (Negative); Blood,Urine Negative (Negative); Color,Urine Light Yellow; Glucose,Urine (UA) Negative (Negative); Ketones,Urine Negative (Negative); Leukocyte Esterase,Urine Negative (Negative); Nitrite,Urine Negative (Negative); Protein,Urine Negative (Negative); RBC,Urine <1 /hpf (0-5); Specific Gravity,Urine 1.004 (1.001-1.035); Squamous Epithelial Cell,Urine 12 /hpf (0-4); Urobilinogen,Urine <2.0 mg/dL (<2.0); WBC,Urine <1 /hpf (0-5)
[2023-03-17 17:44] LABS: Amphetamine Screen,Urine Not Detected (NotDetected); Barbiturate Screen,Urine Not Detected (NotDetected); Benzodiazepines Screen,Urine Not Detected (NotDetected); Cocaine Screen,Urine Not Detected (NotDetected); Methadone Screen, Urine Not Detected (NotDetected); Opiate Screen,Urine Not Detected (NotDetected); Oxycodone Screen, Urine Not Detected (NotDetected); Phencyclidine Screen,Urine Not Detected (NotDetected); Tricyclic Antidepressant,Urine Not Detected (NotDetected); Urn Cannabinoid Scrn Not Detected (NotDetected)
[2023-03-17 18:21] LABS: Basophils % (A) 0 %; Eosinophils # (A) 0.1 k/uL (0-0.7); Eosinophils % (A) 2 %; HCT 41.6 % (34.0-46.0); HGB 14.6 gm/dL (11.4-16.0); Lymphocytes % (A) 28 %; MCH 31.4 pg (25.0-35.0); MCV 89.8 fL (80.0-100.0); Mean Platelet Volume 10.1; Monocytes # (A) 0.3 k/uL (0-1.0); Monocytes % (A) 4 %; Neutrophils # (A) 4.6 k/uL (1.3-7.7); Neutrophils % (A) 64 %; Platelet Count 153 k/uL (150-450); RBC 4.63 m/uL (3.80-5.40); RDW 12.8 % (11.5-15.5); WBC 7.2 k/uL (3.8-10.6)
[2023-03-17 18:31] LABS: African American GFR (CKD) >90 (>60 ml/min/1.73 sqM); Albumin 4.3 g/dL (3.5-5.0); Glucose 112 mg/dL (74-99); Non-African American GFR(CKD) >90 (>60 ml/min/1.73 sqM); Potassium 3.5 mmol/L (3.5-5.1); Sodium 146 mmol/L (137-145); Total Bilirubin 0.2 mg/dL (0.2-1.3)
[2023-03-17 18:41] LABS: ALT 47 U/L (4-34); AST 38 U/L (14-36); Alkaline Phosphatase 69 U/L (38-126); Anion Gap 14 mmol/L; Blood Urea Nitrogen 13 mg/dL (7-17); Carbon Dioxide 25 mmol/L (22-30); Chloride 107 mmol/L (98-107); Total Protein 7.1 g/dL (6.3-8.2)
[2023-03-17 18:52] LABS: Alcohol 362 mg/dL
[2023-03-17] MEDS ORDERED: LORazepam 2 MG/ML INJ IV PRN ×2 (20:20)
[2023-03-17] MEDS ORDERED: THIAMINE 100 MG/ML 2 ML VIAL IM STA (20:20)
[2023-03-17] MEDS ORDERED: SODIUM CHLORIDE 0.9% 1,000 ML IV STA (20:21)
[2023-03-17] MEDS ORDERED: NALOXONE 0.4 MG/ML 1 ML VIAL IV PRN (20:24)
[2023-03-17] MEDS ORDERED: IBUPROFEN 400 MG TAB PO PRN (20:24)
--- NOTE | 2023-03-17 20:24 | ED ---
General Adult HPI - General Chief complaint: Alcohol Stated complaint: ETOH Time Seen by Provider: 03/17/23 17:46 Source: patient, family, RN notes reviewed, old records reviewed Mode of arrival: wheelchair Limitations: no limitations - History of Present Illness Initial comments: She is a 42-year-old female who presents with a department with alcohol i ntoxication and concern for alcohol withdrawals. Also has a history of psychiatric illness. Family brought her in. Attempted to go to rehab facility with instructed her to come here for his. Does have a history of withdrawals as well as hallucinations with them. States she was somewhat withdrawing over the weekend but began drinking alcohol again. Denies any other drug use. Denies any acute complaints at this time other than alcohol intoxication. Presents for further evaluation at this time. Denies any current hallucinations or tremors. - Related Data Home Medications Medication Instructions Recorded Confirmed No Known Home Medications 03/17/23 03/17/23 Allergies Allergy/AdvReac Type Severity Reaction Status Date / Time latex AdvReac Rash/Hives Verified 03/17/23 19:16 Review of Systems ROS Statement: Those systems with pertinent positive or pertinent negative responses have been documented in the HPI. Review of Systems: CONST: Denies fever EYES: Denies blurry vision ENT: Denies nasal congestion C/V: Denies Chest pain RESP: Denies shortness of breath GI: Denies abdominal pain : Denies dysuria SKIN: Denies rash. MSK: Denies joint pain. NEURO: Denies headache ROS Other: All systems not noted in ROS Statement are negative. Past Medical History Past Medical History: Pneumonia History of Any Multi-Drug Resistant Organisms: None Reported Past Surgical History: No Surgical Hx Reported Past Anesthesia/Blood Transfusion Reactions: No Reported Reaction Past Psychological History: Schizoaffective Disorder Smoking Status: Current every day smoker Past Alcohol Use History: Abuse, Daily, Heavy Past Drug Use History: Marijuana - Past Family History Father Family Medical History: Diabetes Mellitus Mother Family Medical History: No Reported History General Exam - General Exam Comments Initial Comments: General: Appears in no acute distress. Appears acutely intoxicated with alcohol HEAD: Normal with no signs of head trauma. EYES: PERRLA, EOMI, conjunctiva normal, no discharge. ENT: Hearing grossly intact, normal oropharynx. RESPIRATORY: Clear breath sounds bilaterally. No wheezes, rales, or rhonchi. C/V: Regular rate and rhythm. S1 and S2 auscultated, peripheral pulses 2+ and intact throughout ABD: Abd is soft, nontender, nondistended EXT: Normal range of motion, no obvious deformity SKIN: No rashes or lesions observed on exposed skin. NEURO: Alert and oriented 4. Acute intoxication with alcohol. No evidence of tremors, tongue fasciculations. Limitations: no limitations Course Vital Signs 03/17/23 03/17/23 17:05 18:42 Temperature 98.2 F Pulse Rate 95 87 Respiratory 20 16 Rate Blood Pressure 144/91 130/95 O2 Sat by Pulse 99 99 Oximetry Medical Decision Making - Medical Decision Making Was pt. sent in by a medical professional or institution (, PA, PROGRAMMER ANALYST CONSULTANT, urgent care, hospital, or usp...) When possible be specific @ -No Did you speak to anyone other than the patient for history (EMS, parent, family, police, friend...)? What history was obtained from this source @ -Family and friends were initially at bedside, and states that the patient does have a history withdrawals and patient needs to be admitted as she will not drink alcohol she goes home. Did you review nursing and triage notes (agree or disagree)? Why? @ -I reviewed and agree with nursing and triage notes Were old charts reviewed (outside hosp., previous admission, EMS record, old EKG, old radiological studies, urgent care reports/EKG's, usp records)? Report findings @ -No old charts were reviewed Differential Diagnosis (chest pain, altered mental status, abdominal pain women, abdominal pain men, vaginal bleeding, weakness, fever, dyspnea, syncope, headache, dizziness, GI bleed, back pain, seizure, CVA, palpatations, mental health, musculoskeletal)? @Alcohol withdrawals, electrolyte abnormality, alcohol intoxication. This list is not all-inclusive. EKG interpreted by me (3pts min.). @ -As above X-rays interpreted by me (1pt min.). @ -None done CT interpreted by me (1pt min.). @ -None done U/S interpreted by me (1pt. min.). @ -None done What testing was considered but not performed or refused? (CT, X-rays, U/S, labs)? Why? @ -None What meds were considered but not given or refused? Why? @ -None Did you discuss the management of the patient with other professionals (professionals i.e. , PA, PROGRAMMER ANALYST CONSULTANT, lab, RT, psych nurse, social service coordinator, dynamic balancer, teacher, homicide squad commanding officer, case management associate)? Give summary @ -No Was smoking cessation discussed for >3mins.? @ -No Was critical care preformed (if so, how long)? @ -No Were there social determinants of health that impacted care today? How? (Homelessness, low income, unemployed, alcoholism, drug addiction, transportation, low edu. Level, literacy, decrease access to med. care, skilled nursing, rehab)? @ -No Was there de-escalation of care discussed even if they declined (Discuss DNR or withdrawal of care, Hospice)? DNR status @ -No What co-morbidities impacted this encounter? (DM, HTN, Smoking, COPD, CAD, Cancer, CVA, ARF, Chemo, Hep., AIDS, mental health diagnosis, sleep apnea, morb id obesity)? @ -Alcohol abuse Was patient admitted / discharged? Hospital course, mention meds given and route, prescriptions, significant lab abnormalities, going to OR and other pertinent info. @ -Based on the patient's presentation and physical exam, presents acutely infected with alcohol. We'll obtain basic labs, the patient states if she goes home she will not drink more alcohol and does have a history of withdrawals. Vital signs within acceptable limits. CIWA protocol was ordered with benzos. She was in agreement this plan. Current CIWA is approximately 2 at worst. EKG showed no signs of acute ischemia. Labs were remarkable for mild hypernatremia of 146. She was given 1 L fluid bolus. Patient also is acutely intact with alcohol with alcohol level of 362. On reevaluation, exam is unchanged. We did discuss her results. Nursing did attempt to contact rehab facilities, specifically [facility] who is closed for admissions for the evening. Therefore we discussed the patient the safest option is to admit here and monitor for signs withdrawal. She was in agreement this plan. I spoke with city call Dr. Stern who accepted the patient. Undiagnosed new problem with uncertain prognosis? @ -No Drug Therapy requiring intensive monitoring for toxicity (Heparin, Nitro, Insulin, Cardizem)? @ -No Were any procedures done? @ -No Diagnosis/symptom? @ -Alcohol intoxication, history of alcohol withdrawal Acute, or Chronic, or Acute on Chronic? @ -Acute on chronic Uncomplicated (without systemic symptoms) or Complicated (systemic symptoms)? @ -Complicated Side effects of treatment? @ -No Exacerbation, Progression, or Severe Exacerbation? @ -No Poses a threat to life or bodily function? How? (Chest pain, [place], [place], pneumonia, PE, COPD, DKA, ARF, appy, cholecystitis, CVA, Diverticulitis, Homicidal, Suicidal, threat to staff... and all critical care pts) @ -Yes, severe alcohol withdrawals are life-threatening. - Lab Data Result diagrams: 03/17/23 18:12 03/17/23 18:12 Lab Results 03/17/23 03/17/23 03/17/23 Range/Units 17:10 18:12 18:12 WBC 7.2 (3.8-10.6) k/uL RBC 4.63 (3.80-5.40) m/uL Hgb 14.6 (11.4-16.0) gm/dL Hct 41.6 (34.0-46.0) % MCV 89.8 (80.0-100.0) fL MCH 31.4 (25.0-35.0) pg MCHC 35.0 (31.0-37.0) g/dL RDW 12.8 (11.5-15.5) % Plt Count 153 (150-450) k/uL MPV 10.1 Neutrophils % 64 % Lymphocytes % 28 % Monocytes % 4 % Eosinophils % 2 % Basophils % 0 % Neutrophils # 4.6 (1.3-7.7) k/uL Lymphocytes # 2.0 (1.0-4.8) k/uL Monocytes # 0.3 (0-1.0) k/uL Eosinophils # 0.1 (0-0.7) k/uL Basophils # 0.0 (0-0.2) k/uL Sodium 146 H (137-145) mmol/L Potassium 3.5 (3.5-5.1) mmol/L Chloride 107 (98-107) mmol/L Carbon Dioxide 25 (22-30) mmol/L Anion Gap 14 mmol/L BUN 13 (7-17) mg/dL Creatinine 0.61 (0.52-1.04) mg/dL Est GFR (CKD-EPI)AfAm >90 (>60 ml/min/1.73 sqM) Est GFR (CKD-EPI)NonAf >90 (>60 ml/min/1.73 sqM) Glucose 112 H (74-99) mg/dL Calcium 9.0 (8.4-10.2) mg/dL Total Bilirubin 0.2 (0.2-1.3) mg/dL AST 38 H (14-36) U/L ALT 47 H (4-34) U/L Alkaline Phosphatase 69 (38-126) U/L Total Protein 7.1 (6.3-8.2) g/dL Albumin 4.3 (3.5-5.0) g/dL Urine Color Light Yellow Urine Appearance Cloudy H (Clear) Urine pH 6.0 (5.0-8.0) Ur Specific [place] 1.004 (1.001-1.035) Urine Protein Negative (Negative) Urine Glucose (UA) Negative (Negative) Urine Ketones Negative (Negative) Urine Blood Negative (Negative) Urine Nitrite Negative (Negative) Urine Bilirubin Negative (Negative) Urine Urobilinogen <2.0 (<2.0) mg/dL Ur Leukocyte Esterase Negative (Negative) Urine RBC <1 (0-5) /hpf Urine WBC <1 (0-5) /hpf Ur Squamous Epith Cells 12 H (0-4) /hpf Urine Opiates Screen Not Detected (NotDetected) Ur Oxycodone Screen Not Detected (NotDetected) Urine Methadone Screen Not Detected (NotDetected) Ur Propoxyphene Screen Not Detected (NotDetected) Ur Barbiturates Screen Not Detected (NotDetected) U Tricyclic Antidepress Not Detected (NotDetected) Ur Phencyclidine Scrn Not Detected (NotDetected) Ur Amphetamines Screen Not Detected (NotDetected) U Methamphetamines Scrn Not Detected (NotDetected) U Benzodiazepines Scrn Not Detected (NotDetected) Urine Cocaine Screen Not Detected (NotDetected) U Marijuana (THC) Screen Not Detected (NotDetected) Serum Alcohol 362 H* mg/dL - EKG Data -: EKG Interpreted by Me EKG Comments: 12-lead Electrocardiogram Interpretation Note EKG was reviewed and interpreted by myself. 12-lead ECG performed at 1816 is interpreted by me as revealing normal sinus rhythm at a rate of 80 beats per minute. [place] is normal. AR interval is 175 ms, QRS duration is 112 ms, QTc is 398 ms.. There were no ST or T wave abnormalities to suggest myocardial ischemia or injury. R wave progression across the precordium was satisfactory. By my interpretation this EKG is non-diagnostic for acute ischemia. Disposition Clinical Impression: Alcoholic intoxication, Alcohol withdrawal syndrome Disposition: ADMITTED IP TO THIS HOSP Condition: Stable Time of Disposition: 20:00
[2023-03-17] MEDS: SODIUM CHLORIDE 0.9% 1,000 ML IV SCH (20:40)
--- NOTE | 2023-03-17 22:57 | P.HPIM ---
History of Present Illness H&P Date: 03/17/23 The patient is a 42-year-old female with a PMH of alcohol abuse and schizoaffective disorder who presented to the emergency room brought by family for alcohol intoxication. The patient reports that she has been drinking a pint of hard liquor daily for the past several years. States that she had her last drink this morning at around 8 AM and had finally decided to go to a rehab facility. When she presented at [facility], she was advised to go to the emergency room instead as she was intoxicated. The patient states that over the weekend she did attempt to quit alcohol but began withdrawing at which point she relapsed. She reports feeling somewhat at her baseline at the time of interview . She denied any active complaints. She denied experiencing chest discomfort, shortness of cough, nausea, vomiting, abdominal pain, diarrhea. In the emergency room, an EKG revealed sinus rhythm at [address]/T-wave changes noted as reviewed by me. Laboratory evaluation was reviewed and was remarkable for serum alcohol level 362, sodium 146, glucose 112, AST 28, ALT 47. ED documentation reviewed and case discussed with ED provider. Review of systems: Pertinent positives and negatives as discussed in HPI, a complete review of systems was performed and all other systems are negative. Physical examination: Vital signs reviewed General: non toxic, no distress, appears at stated age, obese Derm: no unusual rashes/lesions, warm Head: atraumatic, normocephalic, symmetric Eyes: EOMI, no lid lag, anicteric sclera, pupils equal round reactive to light ENT: Nose and ears atraumatic Neck: No cervical lymphadenopathy, trachea midline, supple Mouth: no lip lesion, mucus membranes moist, no tongue fasciculations noted Cardiovascular: S1S2 reg, no murmur, positive dorsalis pedis pulse bilateral, no edema Lungs: CTA bilateral, no rhonchi, no rales, no accessory muscle use Abdominal: soft, nontender to palpation, no guarding Ext: muscle strength 5 out of 5 in all 4 extremities grossly, no gross muscle atrophy, no contractures, Neuro: CN II-XI grossly intact, no gross focal neuro deficits, no outstretched hand tremor Psych: Alert, oriented, appropriate affect Assessment: Alcohol intoxication, impending withdrawal Chronic conditions: Schizoaffective disorder Imaging: EKG revealed sinus rhythm at [address]/T-wave changes noted as reviewed by me Data Review: Laboratory evaluation was reviewed and was remarkable for serum alcohol level 362, sodium 146, glucose 112, AST 28, ALT 47 Plan: C/w CIWA protocol with IVP Ativan prn Continue IV fluids normal saline 75 mg/h Continue with thiamine 100 mg by mouth daily Cardiac monitoring Monitor electrolytes Patient reports she has not been on medications including for schizoaffective disorder for several years DVT prophylaxis: Heparin subcu The patient is admitted with an anticipated greater than 2 midnight stay for evaluation of alcohol intoxication CODE STATUS: Full Code Discussed with: Patient Anticipated discharge place: [facility] Past Medical History Past Medical History: Pneumonia History of Any Multi-Drug Resistant Organisms: None Reported Past Surgical History: No Surgical Hx Reported Past Anesthesia/Blood Transfusion Reactions: No Reported Reaction Past Psychological History: Schizoaffective Disorder Smoking Status: Current every day smoker Past Alcohol Use History: Abuse, Daily, Heavy Past Drug Use History: Marijuana - Past Family History Father Family Medical History: Diabetes Mellitus Mother Family Medical History: COPD Medications and Allergies Home Medications Medication Instructions Recorded Confirmed Type No Known Home Medications 03/17/23 03/17/23 History Allergies Allergy/AdvReac Type Severity Reaction Status Date / Time latex AdvReac Rash/Hives Verified 03/17/23 19:16 Physical Exam Vitals: Vital Signs Temp Pulse Resp BP Pulse Ox 03/17/23 22:21 80 16 123/83 93 L 03/17/23 18:42 87 16 130/95 99 03/17/23 17:05 98.2 F 95 20 144/91 99 Intake and Output 03/17/23 03/17/23 03/17/23 06:59 14:59 22:59 Other: Weight 99.79 kg Results CBC & Chem 7: 03/17/23 18:12 03/17/23 18:12 Labs: Abnormal Lab Results - Last 24 Hours (Table) 03/17/23 03/17/23 Range/Units 17:10 18:12 Sodium 146 H (137-145) mmol/L Glucose 112 H (74-99) mg/dL AST 38 H (14-36) U/L ALT 47 H (4-34) U/L Urine Appearance Cloudy H (Clear) Ur Squamous Epith Cells 12 H (0-4) /hpf Serum Alcohol 362 H* mg/dL
[2023-03-18] MEDS: HEPARIN SODIUM,PORCINE/PF 5,000 UNIT/0.5 ML SYRINGE SQ SCH ×4 (01:18→23:55)
[2023-03-18] MEDS: ONDANSETRON 4 MG/2 ML VIAL IVP PRN ×2 (03:42→12:30)
[2023-03-18 07:08] LABS: Basophils % (A) 0 %; Eosinophils # (A) 0.1 k/uL (0-0.7); Eosinophils % (A) 1 %; HCT 36.7 % (34.0-46.0); HGB 12.4 gm/dL (11.4-16.0); Lymphocytes # (A) 1.4 k/uL (1.0-4.8); Lymphocytes % (A) 18 %; MCH 31.3 pg (25.0-35.0); MCHC 33.8 g/dL (31.0-37.0); MCV 92.5 fL (80.0-100.0); Mean Platelet Volume 9.6; Monocytes # (A) 0.3 k/uL (0-1.0); Monocytes % (A) 4 %; Neutrophils # (A) 5.8 k/uL (1.3-7.7); Neutrophils % (A) 75 %; Platelet Count 123 k/uL (150-450); RBC 3.96 m/uL (3.80-5.40); RDW 12.9 % (11.5-15.5); WBC 7.7 k/uL (3.8-10.6)
[2023-03-18 07:49] LABS: African American GFR (CKD) >90 (>60 ml/min/1.73 sqM); Anion Gap 7 mmol/L; Blood Urea Nitrogen 11 mg/dL (7-17); Calcium 7.8 mg/dL (8.4-10.2); Carbon Dioxide 30 mmol/L (22-30); Chloride 104 mmol/L (98-107); Glucose 82 mg/dL (74-99); Non-African American GFR(CKD) >90 (>60 ml/min/1.73 sqM); Potassium 3.5 mmol/L (3.5-5.1); Sodium 141 mmol/L (137-145)
[2023-03-18] MEDS: LORazepam 2 MG/ML INJ IV PRN ×2 (08:02→23:41)
[2023-03-18] MEDS ORDERED: THIAMINE 100 MG TAB PO SCH (09:00)
[2023-03-18] MEDS: SODIUM CHLORIDE 0.9% 1,000 ML IV SCH (12:59)
[2023-03-18] MEDS ORDERED: ACETAMINOPHEN TAB 325 MG TAB PO STA (13:05)
--- NOTE | 2023-03-18 15:02 | P.PN ---
Subjective Progress Note Date: 03/18/23 The patient is a 42-year-old female with a PMH of alcohol abuse and schizoaffective disorder who presented to the emergency room brought by family for alcohol intoxication. The patient reports that she has been drinking a pint of hard liquor daily for the past several years. States that she had her last drink this morning at around 8 AM and had finally decided to go to a rehab facility. In the emergency room, an EKG revealed sinus rhythm at [address]/T-wave changes noted as reviewed by me. Laboratory evaluation was reviewed and was remarkable for serum alcohol level 362, sodium 146, glucose 112, AST 28, ALT 47. Patient was seen and examined with the mother at bedside. Both agreeable for rehab. Plans for [facility] rehab tomorrow. General: non toxic, no distress, appears at stated age, obese Derm: no unusual rashes/lesions, warm Head: atraumatic, normocephalic, symmetric Eyes: EOMI, no lid lag, anicteric sclera ENT: Nose and ears atraumatic Neck: trachea midline Mouth: no lip lesion, mucus membranes moist Cardiovascular: good distal perfusion in all 4 extremities Lungs: no accessory muscle use Ext: muscle strength 5 out of 5 in all 4 extremities grossly, no gross muscle atrophy, no contractures, Neuro: no outstretched hand tremor Psych: Alert, oriented, appropriate affect Alcohol intoxication, impending withdrawal Chronic conditions: Schizoaffective disorder Data Review: Laboratory evaluation was reviewed and was remarkable for platelet count of 123 and calcium of 7.8. Plan: C/w CIWA protocol with IVP Ativan prn Continue IV fluids normal saline 75 mg/h Continue with thiamine 100 mg by mouth daily Cardiac monitoring Monitor electrolytes Patient reports she has not been on medications including for schizoaffective disorder for several years, refusing psychiatry consultation Plans for discharge to [facility] tomorrow. DVT prophylaxis: Heparin subcu The patient is admitted with an anticipated greater than 2 midnight stay for evaluation of alcohol intoxication CODE STATUS: Full Code Objective - Vital Signs Vital signs: Vital Signs Temp 98 F 03/18/23 08:00 Pulse 88 03/18/23 08:00 Resp 18 03/18/23 08:00 BP 145/98 03/18/23 08:00 Pulse Ox 98 03/18/23 08:00 FiO2 Intake & Output 03/17/23 03/18/23 03/18/23 18:59 06:59 18:59 Weight 99.79 kg - Labs CBC & Chem 7: 03/18/23 06:18 03/18/23 06:18 Labs: Abnormal Lab Results - Last 24 Hours (Table) 03/17/23 03/17/23 03/18/23 Range/Units 17:10 18:12 06:18 Plt Count 123 L (150-450) k/uL Sodium 146 H (137-145) mmol/L Glucose 112 H (74-99) mg/dL Calcium (8.4-10.2) mg/dL AST 38 H (14-36) U/L ALT 47 H (4-34) U/L Urine Appearance Cloudy H (Clear) Ur Squamous Epith Cells 12 H (0-4) /hpf Serum Alcohol 362 H* mg/dL 03/18/23 Range/Units 06:18 Plt Count (150-450) k/uL Sodium (137-145) mmol/L Glucose (74-99) mg/dL Calcium 7.8 L (8.4-10.2) mg/dL AST (14-36) U/L ALT (4-34) U/L Urine Appearance (Clear) Ur Squamous Epith Cells (0-4) /hpf Serum Alcohol mg/dL
[2023-03-18 20:41] VITALS: RESP 18
[2023-03-19] MEDS: SODIUM CHLORIDE 0.9% 1,000 ML IV SCH (00:55)
[2023-03-19 02:01] VITALS: BP 154/70; TEMP 98.4
[2023-03-19 06:15] VITALS: PULSE 89
--- NOTE | 2023-03-19 08:25 | P.DS ---
Providers Date of admission: 03/17/23 20:27 Expected date of discharge: 03/19/23 Attending physician: Richmond Stern MD Primary care physician: Stated None Hospital Course: The patient is a 42-year-old female with a PMH of alcohol abuse and s chizoaffective disorder who presented to the emergency room brought by family for alcohol intoxication. The patient reports that she has been drinking a pint of hard liquor daily for the past several years. States that she had her last drink this morning at around 8 AM and had finally decided to go to a rehab facility. In the emergency room, an EKG revealed sinus rhythm at [address]/T-wave changes. Laboratory evaluation was reviewed and was remarkable for serum alcohol level 362, sodium 146, glucose 112, AST 28, ALT 47. Patient required 3 mg IV Ativan during her hospitalization. Family was able to set up alcohol rehab for 03/19. Patient was seen and examined with the mother at bedside. Patient has no complaints. Plans to go directly to [facility] rehab on discharge. General: non toxic, no distress, appears at stated age, obese Derm: no unusual rashes/lesions, warm Head: atraumatic, normocephalic, symmetric Eyes: EOMI, no lid lag, anicteric sclera ENT: Nose and ears atraumatic Neck: trachea midline Mouth: no lip lesion, mucus membranes moist Cardiovascular: Normal S1 S2. No murmurs/rubs/gallops. Lungs: Clear to auscultation bilaterally, no accessory muscle use Ext: muscle strength 5 out of 5 in all 4 extremities grossly, no gross muscle atrophy, no contractures, Neuro: no outstretched hand tremor Psych: Alert, oriented, appropriate affect Discharge Diagnosis: Alcohol intoxication, impending withdrawal Thrombocytopenia Transaminitis Resolved: Hypernatremia Chronic conditions: Schizoaffective disorder This complex discharge took 35 minutes to complete. Patient Condition at Discharge: Stable Plan - Discharge Summary Discharge Rx Participant: No New Discharge Prescriptions: No Action No Known Home Medications Discharge Medication List No Known Home Medications 03/17/23 [History] Follow up Appointment(s)/Referral(s): None,Stated [Primary Care Provider] - 1-[address] [facility] [NON-STAFF] - Discharge/Stand Alone Forms: AA Meetings [place], Outpatient Counseling, Inp Substance Abuse Facilities, Area PCPs Discharge Disposition: HOME SELF-CARE
== END 2023-03-19 08:27 | disposition home or self-care (01) | DRG 897 ==
LOC: EC 17:04 → 4SSUR 20:27
PROVIDERS: ADMIT Internal Medicine; ATTEND Internal Medicine
DX: F10.129 Alcohol abuse with intoxication, unspecified (principal); E87.0 Hyperosmolality and hypernatremia; D69.6 Thrombocytopenia, unspecified; F25.9 Schizoaffective disorder, unspecified; Y90.8 Blood alcohol level of 240 mg/100 ml or more; F17.210 Nicotine dependence, cigarettes, uncomplicated; F12.91 Cannabis use, unspecified, in remission; R74.01 Elevation of levels of liver transaminase levels; Z91.040 Latex allergy status; Z71.6 Tobacco abuse counseling
CPT/HCPCS: 36415; 80048; 80053; 80306; 80320; 81001; 81025; 85025; 93005; 96361; 96374; 96375; 99285

== ENCOUNTER 2023-04-08 13:51 | Emergency (ER) | payer OTHER ==
[2023-04-08 14:40] VITALS: RESP 18
--- NOTE | 2023-04-08 15:18 | ED ---
General Adult HPI - General Source: patient Mode of arrival: EMS <Nathalia,Nelsy - Last Filed: 04/08/23 15:16> <Ignacio Harrell - Last Filed: 04/08/23 21:05> - General Chief complaint: Nausea/Vomiting/Diarrhea Stated complaint: CDiff Time Seen by Provider: 04/08/23 15:17 - History of Present Illness Initial comments: Patient is a 42-year-old female presenting to the emergency room with complaints of diarrhea 4 days with decreased intake after exposure to C. diff a few weeks ago. She reports that initially she went to urgent care for evaluation for possible treatment of C. diff but at that time she was having constipation and could not provide a stool specimen. She reports that since that time she's been having approximately 10 stools a day with her last bowel movement approximately one hour before presenting to the emergency room. She also complains of generalized malaise and weakness with occasional dizziness however this occurs often for her as she has a past medical history significant for alcohol abuse. She admits to having several shots of vodka prior to coming to the emergency room today. She denies any chest pain, shortness of breath, vomiting, dysuria, fevers or chills. (Nelsy Sloan) Patient is a 42-year-old female presenting with concerns for C. diff. She states that her roommate was recently diagnosed with C. diff and her other roommates are placed on antibiotics. She has been having diarrhea for the last 4 days. She states that she attempted to be tested at urgent care however she was constipated that day and they were unable to test for sample provided. She states that she has had decreased appetite and lethargy. Past medical history significant for alcohol abuse, patient drinks 1 pint of liquor a day. She also states that about a week ago she injured her left great toe. She does not remember how she injured it she believes she may have stubbed it on something, she is having continuing pain and swelling to the area. No numbness or tingling. She has full range of motion and is able to ambulate. No chest pain, difficulty breathing, nausea, vomiting, dysuria, fevers, chills, palpitations, abdominal pain. (Ignacio Harrell) - Related Data Home Medications Medication Instructions Recorded Confirmed No Known Home Medications 03/17/23 04/08/23 Allergies Allergy/AdvReac Type Severity Reaction Status Date / Time latex AdvReac Rash/Hives Verified 04/08/23 17:41 Review of Systems ROS Other: All systems not noted in ROS Statement are negative. <Nelsy Sloan - Last Filed: 04/08/23 15:16> ROS Other: All systems not noted in ROS Statement are negative. <Ignacio Harrell - Last Filed: 04/08/23 21:05> ROS Statement: Those systems with pertinent positive or pertinent negative responses have been documented in the HPI. Past Medical History Past Medical History: Hypertension, Pneumonia Additional Past Medical History / Comment(s): pt does have 2 sons that she had via vaginal History of Any Multi-Drug Resistant Organisms: None Reported Past Surgical History: No Surgical Hx Reported Past Anesthesia/Blood Transfusion Reactions: No Reported Reaction Past Psychological History: Schizoaffective Disorder Smoking Status: Current every day smoker Past Alcohol Use History: Abuse, Daily, Heavy Past Drug Use History: Marijuana - Past Family History Father Family Medical History: Diabetes Mellitus Mother Family Medical History: COPD <Nelsy Sloan - Last Filed: 04/08/23 15:16> General Exam <Nelsy Sloan - Last Filed: 04/08/23 15:16> Limitations: no limitations General appearance: alert, in no apparent distress Head exam: Present: atraumatic, normocephalic, normal inspection Eye exam: Present: normal appearance, EOMI. Absent: scleral icterus, periorbital swelling Neck exam: Present: normal inspection, full ROM Respiratory exam: Present: normal lung sounds bilaterally. Absent: respiratory distress, wheezes, rales, rhonchi, stridor Cardiovascular Exam: Present: regular rate, normal rhythm, normal heart sounds. Absent: systolic murmur, diastolic murmur, rubs, gallop, clicks GI/Abdominal exam: Present: soft. Absent: distended, tenderness, guarding, rebound, rigid Extremities exam: Present: full ROM, tenderness (Left great toe), normal capillary refill Neurological exam: Present: alert, oriented X3, CN II-XII intact Psychiatric exam: Present: normal affect, normal mood Skin exam: Present: warm, dry, intact, normal color. Absent: rash <Ignacio Harrell - Last Filed: 04/08/23 21:05> - General Exam Comments Initial Comments: Visual Physical Exam Vital signs reviewed General: Well-appearing, nontoxic, no acute distress. Head: Normocephalic, atraumatic Eyes: PERRLA, EOMI ENT: Airway patent Chest: Nonlabored breathing Skin: No visual rash, normal skin tone Neuro: Alert and oriented 3 Musculoskeletal: No gross abnormalities (Nelsy Sloan) Course Vital Signs 04/08/23 04/08/23 04/08/23 14:34 16:52 18:46 Temperature 98 F 98.2 F Pulse Rate 96 91 86 Respiratory 18 18 18 Rate Blood Pressure 137/85 149/99 155/103 O2 Sat by Pulse 97 99 98 Oximetry Medical Decision Making <Ignacio Harrell - Last Filed: 04/08/23 21:05> - Medical Decision Making Was pt. sent in by a medical professional or institution (, PA, [employer], urgent care, hospital, or [facility]...) When possible be specific @ -No Did you speak to anyone other than the patient for history (EMS, parent, family, police, friend...)? What history was obtained from this source @ -No Did you review nursing and triage notes (agree or disagree)? Why? @ -I reviewed and agree with nursing and triage notes Were old charts reviewed (outside hosp., previous admission, EMS record, old EKG, old radiological studies, urgent care reports/EKG's, [facility] records)? Report findings @ -No old charts were reviewed Differential Diagnosis (chest pain, altered mental status, abdominal pain women, abdominal pain men, vaginal bleeding, weakness, fever, dyspnea, syncope, headache, dizziness, GI bleed, back pain, seizure, CVA, palpatations, mental health, musculoskeletal)? @ -Differential Musculoskeletal Muscular strain, contusion, ligament sprain, fracture, arthritis, septic arthritis, bursitis, cellulitis, muscle spasm, nerve compression, DVT, arterial occlusion, herpes zoster, electrolyte abnormality, tumor.... This is not meant to be in all inclusive list EKG interpreted by me (3pts min.). @ -As above X-rays interpreted by me (1pt min.). @ -X-ray shows subacute fracture of proximal phalanx of the great toe CT interpreted by me (1pt min.). @ -None done U/S interpreted by me (1pt. min.). @ -None done What testing was considered but not performed or refused? (CT, X-rays, U/S, labs)? Why? @ -None What meds were considered but not given or refused? Why? @ -None Did you discuss the management of the patient with other professionals (professionals i.e. DrKerline, PA, [employer]ER, lab, RT, psych nurse, social work lecturer, hardware installer, teacher, workers' compensation hearings officer, geriatric case manager)? Give summary @ -No Was smoking cessation discussed for >3mins.? @ -No Was critical care preformed (if so, how long)? @ -No Were there social determinants of health that impacted care today? How? (Homelessness, low income, unemployed, alcoholism, drug addiction, transportation, low edu. Level, literacy, decrease access to med. care, half-way, rehab)? @ -No Was there de-escalation of care discussed even if they declined (Discuss DNR or withdrawal of care, Hospice)? DNR status @ -No What co-morbidities impacted this encounter? (DM, HTN, Smoking, COPD, CAD, Cancer, CVA, ARF, Chemo, Hep., AIDS, mental health diagnosis, sleep apnea, morbid obesity)? @ -None Was patient admitted / discharged? Hospital course, mention meds given and route, prescriptions, significant lab abnormalities, going to OR and other [facility] [place] info. @ -Patient is a 42-year-old female presenting with concerns for C. diff as well as injury to the left great toe. Patient's roommates were recently treated for C. diff and she is requesting antibiotics. She states that she is having diarrhea multiple times a day for 4 days. She also states that about a week ago she injured the left great toe, she does not remember how. On physical examination abdomen is soft, nontender, nondistended. The toe is tender and swollen. X-ray shows evidence of subacute fracture of the proximal phalanx of the great toe. Patient was only able to leave a small stool sample which was not loose and not consistent with C. diff, also not able to test the stool due to the consistency. Educated patient on x-ray findings. I also counseled the patient on C. diff, I stated that likely if she is unable to produce a proper sample there is a low clinical likelihood of her actually having C. diff. He stated that I would not be treating prophylactically as if believe the risks outweigh the benefit. Educated on supportive management for toe injury and instructed to report back to ER with any new or worsening symptoms. Follow-up with PCP. Report back to ER with any new or worsening symptoms. Discussed return parameters and answered all questions. Patient conveyed verbal understanding and agreed to the plan. I discussed this case in detail with my attending Dr. Mcqueen Undiagnosed new problem with uncertain prognosis? @ -No Drug Therapy requiring intensive monitoring for toxicity (Heparin, Nitro, Insulin, Cardizem)? @ -No Were any procedures done? @ -No Diagnosis/symptom? @ -Toe fracture Acute, or Chronic, or Acute on Chronic? @ -Acute Uncomplicated (without systemic symptoms) or Complicated (systemic symptoms)? @ -Uncomplicated Side effects of treatment? @ -No Exacerbation, Progression, or Severe Exacerbation? @ -No Poses a threat to life or bodily function? How? (Chest pain, USA, SC, pneumonia, PE, COPD, DKA, ARF, appy, cholecystitis, CVA, Diverticulitis, Homicidal, Suic idal, threat to staff... and all critical care pts) @ -No (Ignacio Harrell) Disposition <Nelsy Sloan - Last Filed: 04/08/23 15:16> Is patient prescribed a controlled substance at d/c from ED?: No Time of Disposition: 19:20 <Ignacio Harrell - Last Filed: 04/08/23 21:05> Clinical Impression: Fractured great toe Disposition: HOME SELF-CARE Condition: Good Instructions (If sedation given, give patient instructions): Toe Fracture (ED) Additional Instructions: Follow-up with PCP and orthopedics. Report back to ER with any new or worsening symptoms. Take Motrin and Tylenol for pain control. Rest, ice, elevate the toe. Referrals: None,Stated [Primary Care Provider] - 1-2 days Vidya Tong DO [Doctor of Osteopathic Medicine] - 1-2 days
[2023-04-08 16:55] VITALS: TEMP 98.2
--- NOTE | 2023-04-08 17:24 | XR ---
EXAMINATION TYPE: XR foot complete LT DATE OF EXAM: 04/08/2023 5:14 PM INDICATION: Patient age:Female; 42 years old; Reason for study: great toe pain; COMPARISON: None TECHNIQUE: The left foot was examined in the AP, oblique, and lateral projections. FINDINGS: Acute/subacute fracture of the first digit proximal phalanx with cortical defect appreciated on later al. IMPRESSION: Acute/subacute fracture of the first digit proximal phalanx. Correlate for history of trauma.
[2023-04-08 18:47] VITALS: BP 155/103; PULSE 86
== END 2023-04-08 19:31 | disposition home or self-care (01) ==
LOC: EC 13:51
DX: S92.402A Displaced unspecified fracture of left great toe, initial encounter for closed fracture (principal); I10 Essential (primary) hypertension; F17.200 Nicotine dependence, unspecified, uncomplicated; F12.90 Cannabis use, unspecified, uncomplicated; Z91.040 Latex allergy status; X58.XXXA Exposure to other specified factors, initial encounter
CPT/HCPCS: 99284